=== PATIENT | female | born 1990 | race Caucasian/White ===

== ENCOUNTER → 2025-01-01 08:55 | Outpatient (REF) | payer OTHER, SELFPAY | LOC: PNTC 08:55 | PROVIDERS: ATTENDING PHYSICIAN Obstetrics & Gynecology | DX: Z34.90 Encounter for supervision of normal pregnancy, unspecified, unspecified trimester (principal) | CPT/HCPCS: 36415; 86850; 86900; 86901; 96372; J2790 ==

== ENCOUNTER 2025-03-25 08:01 | Inpatient (IN) | payer OTHER, SELFPAY ==
[2025-03-25 08:16] VITALS: BP 131/76; BMI 28.2
[2025-03-25] MEDS: LR 1000 IV ×2 (09:04→14:00)
[2025-03-25] MEDS: CYTOTEC 25 MICROGRAM VAG (10:31)
[2025-03-25 10:32] LABS: Hematocrit 30.3 % (37.0-47.0); Hemoglobin 10.6 g/dL (12.0-16.0); Mean Corp Hgb Conc. 35.0 g/dL (33.0-37.0); Mean Corpuscular Volume 85.8 fL (81.0-99.0); Nucleated Red Blood Cells % 0 %; Platelet Count 282 10^3/uL (130-400); Red Cell Dist. Width 18.5 % (11.5-14.5)
[2025-03-25] MEDS: FENTANYL/BUPIVACAINE 100 EPIDURAL (15:09)
[2025-03-25] MEDS: SUBLIMAZE 100 MCG EPIDURAL (15:09)
[2025-03-25] MEDS: PITOCIN 30 UNITS/NSS 500 ML IV (18:55)
[2025-03-25] MEDS: COLACE 100 MG PO (20:30)
[2025-03-25] MEDS: TYLENOL 650 MG PO (21:34)
[2025-03-25] MEDS: MOTRIN 600 MG PO (21:34)
[2025-03-26 04:08] LABS: Hematocrit 26.4 % (37.0-47.0); Hemoglobin 8.9 g/dL (12.0-16.0)
[2025-03-26] MEDS: TYLENOL 650 MG PO ×3 (04:28→17:04)
[2025-03-26] MEDS: MOTRIN 600 MG PO ×3 (04:28→17:03)
[2025-03-26] MEDS: COLACE 100 MG PO ×2 (08:00→19:44)
[2025-03-26] MEDS: PRENATAL PLUS 1 TABLET PO (08:00)
[2025-03-26] MEDS: OCEAN, SALINE MIST 2 SPRAYS NASAL (12:41)
[2025-03-27] MEDS: MOTRIN 600 MG PO ×2 (01:08→09:36)
[2025-03-27] MEDS: TYLENOL 650 MG PO (01:09)
[2025-03-27] MEDS: COLACE 100 MG PO (09:35)
[2025-03-27] MEDS: PRENATAL PLUS 1 TABLET PO (09:35)
[2025-03-27] MEDS: FEOSOL 325 MG PO (09:35)
[2025-03-27] MEDS: OCEAN, SALINE MIST 2 SPRAYS NASAL (09:38)
[2025-03-27 13:50] LABS: Syphilis/T. pallidum Ab Reflex Negative (Negative)
== END 2025-03-27 11:05 | disposition home or self-care (01) | DRG 806 ==
LOC: LDRP 08:01
PROVIDERS: ADMITTING PHYSICIAN Obstetrics & Gynecology
PROC: 10E0XZZ Delivery of Products of Conception, External Approach (ICD-10-PCS; 2025-03-25)
PROC: 0KQM0ZZ Repair Perineum Muscle, Open Approach (ICD-10-PCS; 2025-03-25)
PROC: 3E0P7VZ Introduction of Hormone into Female Reproductive, Via Natural or Artificial Opening (ICD-10-PCS; 2025-03-25)
DX: O48.0 Post-term pregnancy (principal); N82.8 Other female genital tract fistulae; Z37.0 Single live birth; Z3A.40 40 weeks gestation of pregnancy; O99.892 Other specified diseases and conditions complicating childbirth; O70.1 Second degree perineal laceration during delivery
CPT/HCPCS: 85014; 85018; 85025; 86780; 86850; 86900; 86901